=== PATIENT | male | born 1965 | race American Indian/Alaskan Native ===

== ENCOUNTER 2021-10-08 07:57 | Day surgery (SDC) | payer OTHER ==
--- NOTE | 2021-10-06 10:45 | Anesthesia Consultation ---
Anesthesia Consult and Med Hx Date of service: 10/08/21 - Airway Anesthetic Teeth Evaluation: Good ROM Head & Neck: Adequate Mental/Hyoid Distance: Adequate Mallampati Class: Class III Intubation Access Assessment: Possibly Difficult - Pulmonary Exam CTA: Yes - Cardiac Exam Cardiac Exam: RRR - Pre-Operative Health Status ASA Pre-Surgery Classification: ASA2 Proposed Anesthetic Plan: General - Pre-Anesthesia Comment Pre-Anesthesia Comments: Discussed risks/benefits of GA vs MAC. Patient would like to decide DOS. - Pulmonary Hx Smoking: No Hx Respiratory Symptoms: No Hx Sleep Apnea: No (MICHELE PRE SCREEN HIGH RISK) - Cardiovascular System Hx Hypertension: Yes Hx Heart Attack/AMI: No Hx Percutaneous Transluminal Coronary Angioplasty (PTCA): No - Central Nervous System Hx Neuromuscular Disorder: No (pinched nerve in neck causing LUE numbness and weakness) CVA: No - Endocrine Hx Renal Disease: No Hx Liver Disease: No Hx Non-Insulin Dependent Diabetes: Yes Hx Thyroid Disease: No - Other Systems Hx Obesity: No - Additional Comments Anesthesia Medical History Comments: No hx anesthetic complications.
[~2021-10-08 07:57] MED LIST: ACETAMINOPHEN 500 MG TAB PO SCH; LACTATED RINGERS 1,000 ML IV SCH; MIDAZOLAM 2 MG/2 ML INJ IV NR; WATER FOR IRRIG STERILE 1,500 ML BOTTLE IR ONE; WATER FOR IRRIG STERILE 2000 ML IR ONE
[2021-10-08] MEDS ORDERED: ceFAZolin/Water 2 GM/20 ML 2 GM/20 ML SYRINGE IV ONE (08:22)
--- NOTE | 2021-10-08 08:26 | Anesthesia Day of Surgery ---
Anesthesia Day of Surgery - Day of Surgery Patient Examined: Yes Patient H&P Reviewed: Yes Patient is NPO: Yes
[2021-10-08] MEDS ORDERED: propofoL 200 MG/20 ML VIAL IV ONE ×2 (08:36→08:57)
[2021-10-08] MEDS ORDERED: LIDOCAINE MPF (2%) 20 MG/1 ML VIAL 5 ML ONE (08:37)
[2021-10-08] MEDS ORDERED: KETAMINE/STERILE WATER 50 MG/ML SYRINGE ONE (08:42)
[2021-10-08] MEDS ORDERED: MIDAZOLAM 2 MG/2 ML INJ ONE (08:44)
[2021-10-08] MEDS ORDERED: HYDROmorphone 1 MG/1 ML INJ IV PRN (09:36)
--- NOTE | 2021-10-08 09:45 | Ultrasound Report ---
Limited transrectal Ultrasound for prostate biopsy HISTORY: Prostate biopsy in OR. Elev PSA. TECHNIQUE: Grayscale and color imaging performed. IMPRESSION: Ultrasound imaging provided for transrectal prostate biopsy. The prostate measures 27 mL in volume. Please refer to the operative note for complete details. Signer Name: Martin Ley MD Signed: 10/08/2021 9:41 AM Workstation Name: [id number]
[2021-10-08] MEDS ORDERED: HYDROcodone/ACETAMINOPHEN 5-325 MG TAB PO PRN (10:00)
[2021-10-08] MEDS ORDERED: ONDANSETRON 4 MG/2 ML INJ IV PRN (10:00)
--- NOTE | 2021-10-08 10:15 | Post Anesthesia Evaluation ---
- Post Anesthesia Evaluation Patient Participated: Yes Airway Patent: Yes Stable Respiratory Function: Yes Nausea/Vomiting: No Temp > 96.8F: Yes Pain Manageable: Yes Adequeate Hydration: Yes Anesthesia Complications: No
--- NOTE | 2021-10-08 10:20 | Operative Report ---
DATE OF SURGERY: 10/08/2021 PREOPERATIVE DIAGNOSES: 1. Elevated PSA. 2. Family history of prostate cancer. POSTOPERATIVE DIAGNOSES: 1. Elevated PSA. 2. Family history of prostate cancer. OPERATIVE PROCEDURE: Transrectal ultrasound-guided prostate needle biopsy. ANESTHESIA: MAC. ESTIMATED BLOOD LOSS: 20 mL. DRAINS: None. COMPLICATIONS: None. SPECIMENS: Twelve prostate needle biopsies. INDICATIONS FOR PROCEDURE: Elevated PSA and family history of prostate cancer. DESCRIPTION OF PROCEDURE: After the induction of suitable sedation, the patient was positioned in the dorsal lithotomy position. A diagnostic ultrasound was completed. Once the diagnostic ultrasound was completed, 12 biopsies were taken of the prostate in a sextant pattern. All specimens were adequate. Once complete, the ultrasound probe was removed and the patient was awakened from sedation. He tolerated the procedure well. He will return to the office in 2 weeks for pathology review. TID: [id number] RECEIPT: [id number] LUCY/OLGA LIDIA
[2021-10-08] MEDS ORDERED: ceFAZolin/Water 2 GM/20 ML 2 GM/20 ML SYRINGE IV NR (10:30)
[2021-10-08 10:53] VITALS: BP 143/86
== END 2021-10-08 10:20 | disposition home or self-care (01) ==
LOC: OR 07:57
PROVIDERS: ATTEND Urology
DX: R97.20 Elevated prostate specific antigen [PSA] (principal); Z20.822 Contact with and (suspected) exposure to COVID-19; I10 Essential (primary) hypertension; E11.9 Type 2 diabetes mellitus without complications; Z79.899 Other long term (current) drug therapy; Z98.890 Other specified postprocedural states
CPT/HCPCS: 55700; 76872; 82962; 88305; 88344; C1758; J0690; J2250; J2704; J3490; J7120; U0003

== ENCOUNTER 2021-12-11 09:32 | Outpatient (CLI) | payer BC ==
[2021-12-11 10:30] LABS: Blood Urea Nitrogen 20 mg/dL (9-20)
--- NOTE | 2021-12-11 11:41 | Cat Scan Report ---
CT ABDOMEN AND PELVIS WITH CONTRAST INDICATION / CLINICAL INFORMATION: ELEVATED PSA OMNI 300 100ML . Prostate cancer TECHNIQUE: Axial CT images were obtained through the abdomen and pelvis after 100 cc of Omnipaque 300 IV contras t. Sagittal and coronal reformatted images. All CT scans at this location are performed using CT dose reduction for ALARA by means of automated exposure control. COMPARISON: None available. FINDINGS: LOWER CHEST: No significant abnormality. LIVER: No significant abnormality. GALLBLADDER: No significant abnormality. BILE DUCTS: No significant abnormality. PANCREAS: No significant abnormality. SPLEEN: No significant abnormality. ADRENALS: No significant abnormality. RIGHT KIDNEY and URETER: No significant abnormality. LEFT KIDNEY and URETER: No significant abnormality. STOMACH and SMALL BOWEL: No significant abnormality. COLON: No significant abnormality. APPENDIX: No significant abnormality. PERITONEUM: No free fluid. No free air. No fluid collection. LYMPH NODES: No significant adenopathy. AORTA and ARTERIES: No significant abnormality. IVC and VEINS: No significant abnormality. URINARY BLADDER: No significant abnormality. REPRODUCTIVE ORGANS: No significant abnormality. ADDITIONAL FINDINGS: None. SKELETAL SYSTEM: Mild multilevel thoracolumbar spondylosis is evident. No blastic or lytic bony lesio n is detected. IMPRESSION: No evidence for metastatic disease in the abdomen or pelvis. Signer Name: Rustam Pelaez Jr, MD Signed: 12/11/2021 11:37 AM Workstation Name: [id number]
--- NOTE | 2021-12-11 13:26 | Nuclear Medicine Report ---
NUCLEAR MEDICINE BONE SCAN, WHOLE BODY INDICATION / CLINICAL INFORMATION: ELEVATED PSA. TECHNIQUE: 25.3 mCi of Tc-99m MDP were injected IV. Images were obtained of the whole body. COMPARISON: No prior bone scan available. Correlation made with recent CT on 12/11/2021. FINDINGS: ARTICULAR STRUCTURES: Mild, relatively symmetric, periarticular activity which is likely degenerative . SKELETAL LESIONS: None. SOFT TISSUES: Normal. KIDNEYS: Normal. ADDITIONAL FINDINGS: None. IMPRESSION: 1. No osseous metastatic disease identified. Signer Name: Dean Conrad MD Signed: 12/11/2021 1:21 PM Workstation Name: [id number]
== END 2021-12-11 09:33 | disposition home or self-care (01) ==
LOC: NM 09:32
PROVIDERS: ATTEND Urology
DX: R97.20 Elevated prostate specific antigen [PSA] (principal); M47.817 Spondylosis without myelopathy or radiculopathy, lumbosacral region
CPT/HCPCS: 36415; 74177; 78306; 82565; 84520; A9503; Q9967